=== PATIENT | male | born 1980 ===

== ENCOUNTER 2017-04-12 10:16 | Emergency (ER) | payer OTHER ==
[2017-04-12 10:23] VITALS: TEMP 98.2
[2017-04-12] MEDS ORDERED: Naproxen 550 mg Tab PO STA (10:52)
[2017-04-12] MEDS ORDERED: Naproxen 550 mg Tab PO ONE (11:01)
--- NOTE | 2017-04-12 11:52 | C.PDOC ---
History Of Present Illness 36 year old male presented to the emergency department with complaints of pain to the right thigh for 1-2 weeks that radiates down to the calf. Today he felt his leg "tight" prompting ED visit. Did not take any pain medication. 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 Denies any trauma or redness to the leg. No swelling. No back pain. No urinary or bowel incontinence. Time Seen by Provider: 04/12/17 10:40 Chief Complaint (Nursing): Lower Extremity Problem/Injury History Per: Patient History/Exam Limitations: no limitations Onset/Duration Of Symptoms: Worse Since (today, originally noted two weeks ago ) Current Symptoms Are (Timing): Still Present Recent travel outside of the [place]: No Past Medical History Reviewed: Historical Data, Nursing Documentation, Vital Signs Vital Signs: Last Vital Signs Temp 98.2 F 04/12/17 10:20 Pulse 71 04/12/17 12:25 Resp 20 04/12/17 12:25 BP 136/87 04/12/17 12:25 Pulse Ox 98 04/12/17 12:30 Family History: States: Unknown Family Hx - Social History Hx Alcohol Use: No Hx Substance Use: No - Immunization History Hx Tetanus Toxoid Vaccination: No Hx Influenza Vaccination: No Hx Pneumococcal Vaccination: No Review Of Systems Constitutional: Negative for: Fever, Chills Cardiovascular: Negative for: Chest Pain Respiratory: Negative for: Shortness of Breath Musculoskeletal: Positive for: Leg Pain (right leg pain from thigh to calf ) Neurological: Negative for: Weakness, Numbness Physical Exam - Physical Exam Appears: Non-toxic, No Acute Distress Skin: Warm, Dry Head: Atraumatic Eye(s): bilateral: Normal Inspection, EOMI Nose: Normal Oral Mucosa: Moist Neck: Normal, Normal ROM, Supple Chest: Symmetrical, No Deformity Cardiovascular: Rhythm Regular Respiratory: Normal Breath Sounds, No Rhonchi, No Wheezing Extremity: Normal ROM, No Pedal Edema, No Calf Tenderness, Capillary Refill ( good capillary refill, less than two seconds ), No Deformity, No Swelling, Other (Musclar spasms of the right calf woth tenderness) Extremity: Bilateral: Normal Color And Temperature, Normal ROM Pulses: Left Dorsalis Pedis: Normal, Right Dorsalis Pedis: Normal Neurological/Psych: Oriented x3, Normal Speech, Normal Motor, Normal Sensation ED Course And Treatment O2 Sat by Pulse Oximetry: 98 (room air ) - Other Rad Leg XR X-Ray: Interpreted by Me, Viewed By Me Interpretation: No fx or dislocation Progress Note: X-Ray and Venous Duplex scan ordered for the right leg. Patient was given valium and naproxen. Upon re-evaluation patient is resting comfortably, and is in no acute distress. Patient was instructed to follow up with physician in 1-2 days for further evaluation. Disposition - Disposition Referrals: [facility] [Outside] Disposition: HOME/ ROUTINE Disposition Time: 12:28 Condition: STABLE Additional Instructions: Vaya a soliman mdico o la clnica en 2-5 dailey sin falta, para mas evaluacin. [place] los medicamentos tamiko indicado. Volver a la cristino de emergencia en cualquier momento si los sntomas persisten o empeoran. Prescriptions: Cyclobenzaprine [Cyclobenzaprine HCl] 10 mg PO TID #20 tab Naproxen [Naprosyn] 1 tab PO BID PRN #20 tab PRN Reason: Pain Instructions: Muscle Spasm (ED) Forms: [employer] (Danish), Work Excuse Print Language: CITIZEN OF [place] - Clinical Impression Clinical Impression: Leg muscle spasm - Scribe Statement The provider has reviewed the documentation as recorded by the Scribe Maci Humphreys All medical record entries made by the Scribe were at my direction and personally dictated by me. I have reviewed the chart and agree that the record accurately reflects my personal performance of the history, physical exam, medical decision making, and the department course for this patient. I have also personally directed, reviewed, and agree with the discharge instructions and disposition.
--- NOTE | 2017-04-12 12:10 | RAD ---
PROCEDURE: Radiographs of the right tibia and fibula. HISTORY: Pain COMPARISON: None available. TECHNIQUE: Frontal and lateral views obtained. FINDINGS: BONES: Bone alignment and mineralization are normal. There is no acute displaced fracture or bone destruction JOINT SPACES: Unremarkable. OTHER FINDINGS: None. IMPRESSION: No acute fracture or dislocation.
[2017-04-12 12:25] VITALS: BP 136/87; PULSE 71; RESP 20
[2017-04-12 12:30] VITALS: O2SAT 98
--- NOTE | 2017-04-13 14:44 | VASCLAB ---
PROCEDURE: Right Lower Extremity Venous Duplex Exam. HISTORY: pain Right leg pain, cramps PRIORS: None. TECHNIQUE: Right common femoral, femoral, popliteal and posterior tibial, peroneal and great saphenous veins were evaluated. Flow was assessed with color Doppler, compressibility, assessment of phasic flow and augmentation response. Report prepared by Nabeel Villanueva, RVT FINDINGS: RIGHT: 1. Common Femoral Vein: 1.1. Compressibility - Fully compressible: Thrombus - None: Flow - Phasic: Augmentation -Normal: Reflux - . 2. Femoral Vein: 2.1. Compressibility - Fully compressible: Thrombus - None: Flow - Phasic: Augmentation -Normal: Reflux - . 3. Popliteal Vein: 3.1. Compressibility - Fully compressible: Thrombus - None: Flow - Phasic: Augmentation -Normal: Reflux - . 4. Posterior Tibial Vein: 4.1. Compressibility - Fully compressible: Thrombus - None: Flow - : Augmentation -: Reflux - . 5. Peroneal Vein: 5.1. Compressibility - Fully compressible: Thrombus - None: Flow - : Augmentation -: Reflux - . 6. Great Saphenous Vein: 6.1. Compressibility - Fully compressible: Thrombus -None: Flow - : Augmentation - : Reflux - . OTHER FINDINGS: IMPRESSION: No evidence of deep or superficial vein thrombosis of the right lower extremity with excellent venous flow. Normal venous flow noted in the left common femoral vein.
== END 2017-04-12 12:57 | disposition home or self-care (01) ==
LOC: C.ER 10:16
DX: M62.838 Other muscle spasm (principal)